=== PATIENT | female | born 1950 | race Caucasian/White ===

== ENCOUNTER → 2017-12-16 | Outpatient (CLI) | payer MEDICARE | END | disposition home or self-care (01) | LOC: CDC 12:07 | DX: Z01.810 Encounter for preprocedural cardiovascular examination (principal); C50.812 Malignant neoplasm of overlapping sites of left female breast | CPT/HCPCS: 93000 ==

== ENCOUNTER 2017-12-26 06:59 | Day surgery (SDC) | payer OTHER, MEDICARE ==
[~2017-12-26] VITALS: Ht 160 cm; Wt 66.2 kg
[~2017-12-26 06:59] MED LIST: CO Q-10100 MG PO; COZAAR50 MG PO; PRAVACHOL40 MG PO; SYNTHROID50 MCG PO; SYNTHROID75 MCG PO; VITAMIN D-32000 UNI2 PO; ZANTAC75 M1 PO
[2017-12-26 07:43] VITALS: BP 140/81
[2017-12-26] MEDS ORDERED: HYDROCODON-ACE1 EAC7 PO (14:36)
[2017-12-26 16:41] VITALS: BP 166/91
[2017-12-26 17:46] VITALS: BP 132/66
[2017-12-26 19:20] VITALS: BP 140/76
== END 2017-12-26 19:28 | disposition home or self-care (01) ==
LOC: SDC 06:59 → NUC 09:00 → SDC 09:00
PROC: 3E0W3KZ Introduction of Other Diagnostic Substance into Lymphatics, Percutaneous Approach (ICD-10-PCS; principal; 2017-12-26)
PROC: 0HBU0ZZ Excision of Left Breast, Open Approach (ICD-10-PCS; principal; 2017-12-26)
PROC: 07B60ZX Excision of Left Axillary Lymphatic, Open Approach, Diagnostic (ICD-10-PCS; principal; 2017-12-26)
DX: C50.812 Malignant neoplasm of overlapping sites of left female breast (principal); Z17.0 Estrogen receptor positive status [ER+]; Z80.3 Family history of malignant neoplasm of breast; Z80.0 Family history of malignant neoplasm of digestive organs; K21.9 Gastro-esophageal reflux disease without esophagitis; E78.5 Hyperlipidemia, unspecified; I10 Essential (primary) hypertension; E03.9 Hypothyroidism, unspecified; M85.80 Other specified disorders of bone density and structure, unspecified site; E55.9 Vitamin D deficiency, unspecified; Z84.1 Family history of disorders of kidney and ureter
CPT/HCPCS: 78195; A9541; J0131; J0330; J0690; J1100; J1170; J1885; J2250; J2405; J3010; Q0175; S0020